=== PATIENT | female | born 1980 | race African-American/Black ===

== ENCOUNTER 2023-04-19 00:51 | Emergency (ER) | payer BC ==
[~2023-04-19] VITALS: Ht 167.6 cm; Wt 139.7 kg
[2023-04-19 01:19] VITALS: BP_SYST 153; PULSE 76; RESP 16; TEMP 98.1; O2SAT 99
[2023-04-19 02:14] VITALS: BP_SYST 163
[2023-04-19] MEDS ORDERED: AMLO5TAB4 PO (02:21)
[2023-04-19] MEDS ORDERED: amLODIPine BESYLATE 5 MG TABLET PO ONE (02:30)
== END 2023-04-19 02:55 | disposition home or self-care (01) ==
LOC: SED 00:51
DX: I10 Essential (primary) hypertension (principal); R51.9 Headache, unspecified; Z79.899 Other long term (current) drug therapy
CPT/HCPCS: 99283